=== PATIENT | male | born 1980 | race Two or more races ===

== ENCOUNTER 2024-11-11 10:40 | Day surgery (SDC) | payer MEDICAID, SELFPAY ==
[2024-11-10 14:53] VITALS: BMI 31.7
[2024-11-11] VITALS (12 sets, daily range): BP systolic 107–134; BP diastolic 69–97; PULSE 50–72; RESP 13–18; TEMP 36.1–36.5; O2SAT 100; BMI 25.0
[2024-11-11] MEDS: RINGERS LACTATED 500 ML 1,000 ML 60 ML IV (14:24)
--- NOTE | 2024-11-11 14:48 | SUR.PHASEII ---
1898 patient arrived to recovery, drowsy and talking with staff, breathing unlabored, vital signs stable, denies pain and nausea, report received from Haritha VEGAS
--- NOTE | 2024-11-11 15:29 | SUR.PHASEII ---
[address] Whiting via telephone, patient's heart rate low, 45-50 bpm, patient is awake and alert, drinking fluids and talking to this telegraphic typewriter mechanic, no new orders will continue to monitor, stated patient is okay to proceed with discharge
--- NOTE | 2024-11-11 16:01 | SUR.PHASEII ---
1601 Patient meets discharge criteria from recovery, awake and alert, breathing unlabored, vital signs stable, denies pain and nausea, patient ate two jello's, a pudding and drinking 7up, voided in the restroom prior to discharge, assisted with dressing into his clothing by his , discharge instructions given to patient and patients with the assistance of the telephone interpreter for the deaf Brianna ID#[id number], signed discharge instructions. Patient given all his belongings prior to discharge, transported via wheelchair and left in a private vehicle.
== END 2024-11-11 16:01 | disposition home or self-care (01) ==
PROVIDERS: Referring Provider Specialist; Visit Provider Specialist
PROC: (CPT 43239; principal; 2024-11-11 12:45)
DX: K21.00 Gastro-esophageal reflux disease with esophagitis, without bleeding (principal); K29.50 Unspecified chronic gastritis without bleeding; K31.89 Other diseases of stomach and duodenum; K44.9 Diaphragmatic hernia without obstruction or gangrene
CPT/HCPCS: 43239; A4649; J1200; J2250; J2405; J3010; J7120; A9270

== ENCOUNTER 2025-06-09 08:00 | Day surgery (SDC) | payer MEDICAID, SELFPAY ==
[2025-06-08 11:39] VITALS: BMI 29.6
[2025-06-09] VITALS (14 sets, daily range): BP systolic 101–139; BP diastolic 60–91; PULSE 52–84; RESP 16–22; TEMP 36.5–36.6; O2SAT 92–198; BMI 27.9
[2025-06-09] MEDS: MIDAZOLAM INJ 1 MG/ML VIAL 2 ML (ASD USE ONLY) 2 MG IVP (10:38)
[2025-06-09] MEDS: fentaNYL CIT INJ 50 mCg/ML AMP 2ML (ASD USE ONLY) IVP (10:38)
[2025-06-09] MEDS: RINGERS LACTATED 1000 ML 1,000 ML 60 ML IV (10:38)
== END 2025-06-09 11:47 | disposition home or self-care (01) ==
PROVIDERS: PCP Physician Assistant Medical; Referring Provider Specialist; Visit Provider Specialist
PROC: 0DBE8ZX Excision of Large Intestine, Via Natural or Artificial Opening Endoscopic, Diagnostic (ICD-10-PCS; CPT 45380; principal; 2025-06-09 09:15)
DX: K64.1 Second degree hemorrhoids (principal); K64.4 Residual hemorrhoidal skin tags; K60.2 Anal fissure, unspecified
CPT/HCPCS: 45378; A4649; J1200; J2250; J3010; J7120